=== PATIENT | female | born 1980 | race Caucasian/White ===

== ENCOUNTER 2017-04-06 12:08 | Emergency (ER) | payer OTHER ==
[~2017-04-06] VITALS: Ht 170.2 cm; Wt 60.0 kg
[2017-04-06 12:14] VITALS: BP 129/87; PULSE 65; TEMP 36.7; O2SAT 99; Ht 170.2 cm; Wt 60.0 kg
[2017-04-06] MEDS ORDERED: BACITRACIN OINT 15 GM TUBE EXT STA (12:44)
[2017-04-06] MEDS ORDERED: CEPHALEXIN MONOHYDRATE 250 MG CAP PO STA (12:44)
[2017-04-06] MEDS ORDERED: CEPH500C PO (13:01)
--- NOTE | 2017-04-06 13:02 | EMERGENCY ROOM VISIT NOTE ---
ED Visit Note First contact with patient: 12:30 CHIEF COMPLAINT: Burn of right 3rd, 4th, and 5th fingers HISTORY OF PRESENT ILLNESS: This 87-year-old female patient presents to the emergency department one week after they sustained a burn injury to the right fingers #3, 4, 5. This occurred last week while making fries. The patient states she was dropping the fries into the deep fryer, when the grease splashed. She has been using antibiotic ointment, a and D ointment with vitamin D, and bandaging the wounds. She states over the past week, they initially seemed to improve, but now seem to be worsening. The patient is noticing more pain and redness. She has been bandaging the wounds while at work , but trying to leave them open to air at home. She went to urgent care in [place], and was sent here for further evaluation. The patient complains of swelling and pain over the posterior aspect of the third, fourth, and fifth fingers, rated as 5/10. Pain is worse with movement and pressure. Sensation is still present. There is no blistering. No other injury sustained. Tetanus shot is up to date. REVIEW OF SYSTEMS: A 6 system review of systems was completed with positives and pertinent negatives listed in the HPI. ALLERGIES: Codeine, tramadol, Phenergan, Stadol MEDICATIONS: None PMH: None SOCIAL HISTORY: The patient lives locally with her fianc. She is employed. She denies drug, alcohol use. The patient admits to smoking one pack of cigarettes every 4 days. PHYSICAL EXAM: Vital Signs reviewed, see Nurse's notes, vital signs stable. GENERAL: This is a 37-year-old white female, awake, alert, well appearing, no acute distress HEENT: Normocephalic, atraumatic. No carbonaceous sputum or singed nasal hair. Oropharynx without edema or erythema. NECK: No stridor MUSCULOSKELETAL: No gross deformity. SKIN: There is a partial thickness burn to the posterior aspects of the third, fourth, and fifth digits and is <1% TBSA. The burn is not circumferential. No signs of infection or foreign body. There is no current skin sloughing. There is mild redness surrounding the area of the burn, which does appear slightly cellulitic in nature. There is no puslike drainage coming from the burn, but the burn wounds do appear to have clothing fibers stuck in them. NEURO: No sensory or motor deficits noted over all dermatomes and myotomes tested. EMERGENCY DEPARTMENT COURSE AND DECISION MAKING: I examined the patient. The patient presented with an isolated thermal burn as above. No signs of airway involvement or smoke inhalation. There is no critical body part involvement or burn severity to warrant burn center referral. The pearce are 1 week old. ER Treatment: The burn wounds were cleaned with sterile saline and bandaged with bacitracin ointment and a gauze bandage. The patient was given 500 mg Keflex by mouth. Discharge instructions reviewed. The patient was discharged home in stable condition. I attest that I have personally reviewed the patient's current medication list. Patient was found to have normal blood pressure on screening and does not require follow-up. DIFFERENTIAL DIAGNOSIS: Thermal burn, chemical burn, full-thickness burn, cellulitis, abscess, and others DIAGNOSIS: Burn of multiple fingers Current/Historical Medications Scheduled Cephalexin Monohydrate (Keflex), 500 MG PO QID Allergies Coded Allergies: Codeine (Unverified Allergy, Unknown, ., 04/06/17) Promethazine (Unverified Allergy, Unknown, ., 04/06/17) Tramadol (Unverified Allergy, Unknown, ., 04/06/17) Vital Signs Date Time Temp Pulse Resp B/P (MAP) Pulse Ox O2 Delivery O2 Flow Rate FiO2 04/06/17 12:14 36.7 65 20 129/87 99 Room Air Medications Administered Medications (Trade) Dose Ordered Sig/Misti Route Start Time Stop Time Status Last Admin Dose Admin Bacitracin (Bacitracin Oint) 1 appln NOW STAT EXT 04/06/17 12:44 04/06/17 12:47 DC 04/06/17 12:57 1 APPLN Cephalexin Monohydrate (Keflex Cap) 500 mg NOW STAT PO 04/06/17 12:44 04/06/17 12:47 DC 04/06/17 12:57 500 MG Departure Information Impression Primary Impression: Thermal burn Additional Impression: Burn of multiple fingers of right hand excluding thumb Dispostion Home / Self-Care Condition GOOD Prescriptions Cephalexin Monohydrate (Keflex) 500 Mg Cap 500 MG PO QID for 7 Days, #28 CAP Prov: Carrie Raymond, POOJA 04/06/17 Referrals No Doctor, Assigned (PCP) Forms HOME CARE DOCUMENTATION FORM, IMPORTANT VISIT INFORMATION Patient Instructions ED Burn Wound Check Maritza Jamison [facility] Additional Instructions You have been treated in the Emergency Department today for a burn on your right fingers. You have been prescribed Bacitracin Ointment. This is an antibiotic ointment that will help to prevent the development of an infection at the site of your burn. After you have cleaned the burn site with soap and water and dried the area thoroughly, you should apply a layer of the ointment to the site of the burn with clean gauze or a clean tongue depressor. You should apply a dressing over the site of the burn to keep it clean from contamination. You may leave it open to air as it continues to heal, however, you should avoid getting the wound dirty. If you notice dirt or clothing fibers in the wound, clean it thoroughly with antibiotic soap and water. Look for signs of infection of the wound including: increased pain, swelling, foul discharge, streaking, or increased temperature. If any of these are noticed you should return to the Emergency Department for further assessment and treatment. Cephalexin(Keflex) 500mg: Take one pill four times daily for 7 days for your skin infection. All antibiotics can cause diarrhea. If this occurs and you feel worse or it does not resolve in 1-2 days follow up with your doctor or return to the Emergency Department as this could be signs of serious underlying problems. Any medication can cause an allergic reaction, stop the pills immediately and return to the ER for rash, hives, breathing difficulties, or swelling. For pain control, you can use the following [id number] medicines (if >12 yo): Ibuprofen(Motrin, Advil) may be used for fever or pain. Use 600mg every six hours as needed. Take with food. Avoid using more than 2400mg in a 24 hour period. Do not use 2400mg per day for more than three consecutive days without physician direction. Prolonged inappropriate use can lead to stomach upset or ulcers. (AND/OR) Acetaminophen(Tylenol) may be used for fever or pain. Use 1000mg every six hours as needed. Avoid using more than 3000mg in a 24 hour period. You should follow-up with your PCP in 2-3 days or return to the Emergency Department for a recheck of your burn. This is essential to ensure proper wound healing. Return to the emergency department if your symptoms worsen despite treatment course outlined above. Problem Qualifiers Additional Impression: Burn of multiple fingers of right hand excluding thumb Encounter type: initial encounter Burn degree: partial thickness (2nd degree ) Qualified Codes: T23.231A - Burn of second degree of multiple right fingers (nail), not including thumb, initial encounter
== END 2017-04-06 13:13 | disposition home or self-care (01) ==
LOC: C.EDB 12:12 → C.EDD 13:13
DX: T23.231A Burn of second degree of multiple right fingers (nail), not including thumb, initial encounter (principal); X10.2XXA Contact with fats and cooking oils, initial encounter; F17.200 Nicotine dependence, unspecified, uncomplicated